=== PATIENT | male | born 1990 | race Caucasian/White ===

== ENCOUNTER 2020-05-29 07:00 | Outpatient (CLI) | payer OTHER | END 2020-05-29 23:59 | disposition home or self-care (01) | LOC: COV 07:00 | PROVIDERS: ATTEND Family Medicine | DX: R05 Cough (principal); R68.83 Chills (without fever); J02.9 Acute pharyngitis, unspecified; Z20.828 Contact with and (suspected) exposure to other viral communicable diseases ==

== ENCOUNTER 2020-07-01 10:37 | Outpatient (CLI) | payer OTHER ==
--- OUTSIDE RECORDS SUMMARY | 2020-07-01 14:39 | EXTERNAL MEDICAL SUMMARY RPT | Continuity of Care Document ---
:1990 Demographics Phone Unavailable Preferred Language Unknown Marital Status Unknown Buddhism Affiliation Unknown Race Unknown Ethnic Group Unknown Author Organization [facility] Address [address] [place] [address] Phone Care Team Providers Name Role Phone Ortega Unavailable Unavailable Problems date description facility 2020-05-29 07:00 ACUTE PHARYNGITIS, UNSPECIFIED [facility] 2020-05-29 07:00 COUGH [facility] 2020-05-29 07:00 CHILLS (WITHOUT FEVER) [facility] 2020-05-29 07:00 CONTACT W AND EXPOSURE TO OTH [facility] VIRAL COMMUNICABLE DISEASES Results test status date ordered by attending specimen enoc e null F 2020-05-29 [email or web address] MARK RUSSELL 05-29 16:46:00 13:00:00 facility observation status value reference units lab abnor mal line notes range code [facility] F NEGATIVE unknown [facility] - Report scanned to Patient' s EMR. Testing performe d at [facility] Social History date description facility [id number]
== END 2020-07-01 10:38 | disposition home or self-care (01) ==
LOC: COV 10:37
PROVIDERS: ATTEND Family Medicine
DX: R05 Cough (principal); R06.02 Shortness of breath; R53.83 Other fatigue; R07.0 Pain in throat; Z20.828 Contact with and (suspected) exposure to other viral communicable diseases